=== PATIENT | female | born 1970 | race Caucasian/White ===

== ENCOUNTER → 2020-01-16 | Outpatient (CLI) | payer OTHER ==
[~2020-01-16] MED LIST: SIMV40TA20 PO
[2020-01-16 14:13] LABS: HCG UR SG 1.015 (1.003-1.030)
[2020-01-16 14:14] LABS: BASOPHILS % (AUTO) 1 % (0-1); EOSINOPHILS # (AUTO) 0.03 x10^3/uL (0-0.4); EOSINOPHILS % (AUTO) 0 % (1-7); LYMPHOCYTES # (AUTO) 2.02 x10^3/uL (1-3.4); LYMPHOCYTES % (AUTO) 23 % (22-44); MD NO; MEAN CORPUSCULAR HEMOGLOBIN 29.3 pg (27.0-34.8); MEAN CORPUSCULAR HGB CONC 32.5 g/dL (32.4-35.8); MEAN CORPUSCULAR VOLUME 90.2 fL (80-100); MEAN PLATELET VOLUME 8.1 fL (7.4-10.4); MONOCYTES # (AUTO) 0.56 x10^3/uL (0.2-0.8); MONOCYTES % (AUTO) 6 % (2-9); NEUTROPHILS # (AUTO) 6.21 x10^3/uL (1.8-6.8); NEUTROPHILS % (AUTO) 70 % (42-75); PLATELET COUNT 296 x10^3/uL (130-400); RED BLOOD COUNT 4.47 x10^6/uL (3.82-5.3); RED CELL DISTRIBUTION WIDTH 14.3 % (9.6-15.2)
[2020-01-16 14:21] LABS: ALBUMIN 3.7 g/dL (3.4-5.0); ANION GAP 5 mmol/L (5-15); CALCIUM 8.3 mg/dL (8.5-10.1); CHLORIDE 108 mmol/L (98-107)
[2020-01-16 14:24] LABS: ALANINE AMINOTRANSFERASE 18 U/L (12-78); ALKALINE PHOSPHATASE 60 U/L (45-117); BILIRUBIN,TOTAL 0.3 mg/dL (0.2-1.0); CREATININE 0.72 mg/dL (0.55-1.02); TOTAL PROTEIN 7.5 g/dL (6.4-8.2)
== END | disposition home or self-care (01) ==
LOC: STAR 13:20
PROVIDERS: ATTEND Obstetrics & Gynecology Gynecology
DX: R32 Unspecified urinary incontinence (principal); N81.6 Rectocele; N81.10 Cystocele, unspecified
CPT/HCPCS: 36415; 71046; 80053; 81025; 85025

== ENCOUNTER 2020-01-20 09:11 | Day surgery (SDC) | payer OTHER ==
[~2020-01-20] VITALS: Ht 162.6 cm; Wt 66.4 kg
[2020-01-20 10:10] VITALS: BP 106/70
[2020-01-20] MEDS ORDERED: LACTATED RINGERS 1,000 ML IV ONE (10:13)
[2020-01-20] MEDS ORDERED: CHLORHEXIDINE 15 ML UDC MM STA (10:13)
[2020-01-20] MEDS ORDERED: CHLORHEXIDINE 15 ML UDC ONE (10:16)
[2020-01-20 10:52] LABS: HCG UR SG 1.025 (1.003-1.030)
[2020-01-20] MEDS ORDERED: FLUORESCEIN SODIUM 500 MG/5 ML ONE (12:48)
[2020-01-20] MEDS ORDERED: LIDOCAINE 1%-EPI 1:100K, 20ML ONE (12:48)
[2020-01-20] MEDS ORDERED: SODIUM CHLORIDE 0.9% 50 ML ONE (12:49)
[2020-01-20] MEDS ORDERED: KETOROLAC 30 MG/1 ML ONE ×2 (13:08→13:29)
[2020-01-20] MEDS ORDERED: CEFAZOLIN 1,000 MG ONE (13:08)
[2020-01-20] MEDS ORDERED: ONDANSETRON 2MG/ML, 2ML ONE (13:08)
[2020-01-20] MEDS ORDERED: LIDOCAINE PF 2%, 5ML ONE (13:08)
[2020-01-20] MEDS ORDERED: DEXAMETHASONE 4 MG/ML, 1ML ONE (13:08)
[2020-01-20] MEDS ORDERED: PROPOFOL 10 MG/ML, 20ML ONE (13:08)
[2020-01-20] MEDS ORDERED: ONDANSETRON 2MG/ML, 2ML IVPush PRN (13:30)
[2020-01-20] MEDS ORDERED: PROMETHAZINE 25 MG SUPP PR PRN (13:30)
[2020-01-20] MEDS ORDERED: LORazepam 2 MG/ML, 1ML IVPush PRN (13:30)
[2020-01-20] MEDS ORDERED: FENTANYL PF 100 MCG/2ML IV PRN (13:30)
[2020-01-20] MEDS ORDERED: ACETAMINOPHEN 325 MG TABLET PO PRN (13:30)
[2020-01-20] MEDS ORDERED: DIAZEPAM 5 MG/ML, 2ML IVPush PRN (13:30)
[2020-01-20] MEDS ORDERED: HYDROmorphone 1 MG/ML, 1ML INJ IVPush PRN (13:30)
[2020-01-20] MEDS ORDERED: PROMETHAZINE 25 MG/ML, 1ML IVPush PRN (13:30)
[2020-01-20] MEDS ORDERED: OXYcodone 5 MG/5 ML ORAL.SOL UDC PO PRN (13:30)
[2020-01-20] MEDS ORDERED: MIDAZOLAM 1 MG/ML, 2ML ONE (13:31)
[2020-01-20] MEDS ORDERED: FENTANYL PF 250 MCG/5ML ONE (13:31)
[2020-01-20] MEDS ORDERED: INDIGO CARMINE 0.8%, 5ML ONE (16:35)
== END 2020-01-20 18:35 | disposition home or self-care (01) ==
LOC: OUT 09:11
PROVIDERS: ATTEND Obstetrics & Gynecology Gynecology
DX: N39.3 Stress incontinence (female) (male) (principal); Z11.59 Encounter for screening for other viral diseases; N36.42 Intrinsic sphincter deficiency (ISD); N81.10 Cystocele, unspecified; N81.6 Rectocele; E78.00 Pure hypercholesterolemia, unspecified; Z79.899 Other long term (current) drug therapy; Z88.0 Allergy status to penicillin; Z83.3 Family history of diabetes mellitus; Z82.49 Family history of ischemic heart disease and other diseases of the circulatory system; Z82.3 Family history of stroke; Z82.61 Family history of arthritis
CPT/HCPCS: 57260; 57288; 81025; 87635; C1771; J0690; J1100; J1885; J2250; J2405; J2704; J3010; J3490; J7120